=== PATIENT | male | born 1985 | race African-American/Black ===

== ENCOUNTER 2021-04-19 03:25 | Emergency (ER) | payer SELFPAY ==
[~2021-04-19] VITALS: Ht 182.9 cm; Wt 82.0 kg
[2021-04-19] MEDS ORDERED: AMOX-494 MT (03:54)
[2021-04-19] MEDS ORDERED: IBUPROFEN 600MG TABLET PO ONE (04:00)
[2021-04-19] MEDS ORDERED: DEXAMETHASONE 10 MG/ML VIAL IM ONE (04:00)
[2021-04-19 04:01] VITALS: BP 137/79
== END 2021-04-19 04:05 | disposition home or self-care (01) ==
LOC: ER 03:25
DX: J02.9 Acute pharyngitis, unspecified (principal); F12.10 Cannabis abuse, uncomplicated; Z90.49 Acquired absence of other specified parts of digestive tract
CPT/HCPCS: 96372; 99283; J1100

== ENCOUNTER 2022-08-19 16:54 | Emergency (ER) | payer SELFPAY ==
[~2022-08-19] VITALS: Ht 182.9 cm; Wt 88.5 kg
[~2022-08-19 16:54] MED LIST: AMOX-494 MT
[2022-08-19 17:00] VITALS: BP 129/69; PULSE 78; RESP 16; TEMP 98.5; O2SAT 98
[2022-08-19] MEDS ORDERED: AMOX-494 MT (17:26)
[2022-08-19] MEDS ORDERED: IBUP-2029 MT (17:26)
[2022-08-19] MEDS ORDERED: AMOXICILLIN 500 MG CAPSULE PO ONE (17:30)
[2022-08-19] MEDS ORDERED: KETOROLAC 30MG/ML VIAL IM ONE (17:30)
== END 2022-08-19 18:27 | disposition home or self-care (01) ==
LOC: ER 16:54
DX: J02.9 Acute pharyngitis, unspecified (principal); F12.10 Cannabis abuse, uncomplicated
CPT/HCPCS: 96372; 99283; J1885; Z7610

== ENCOUNTER 2022-08-22 20:34 | Emergency (ER) | payer SELFPAY ==
[~2022-08-22] VITALS: Ht 175.3 cm; Wt 86.6 kg
[~2022-08-22 20:34] MED LIST changes: +IBUP-2029 MT
[2022-08-22] MEDS ORDERED: AMOX1TAB16 MT (22:25)
[2022-08-22 22:40] VITALS: BP 130/65
== END 2022-08-22 22:45 | disposition home or self-care (01) ==
LOC: ER 20:34
DX: H66.93 Otitis media, unspecified, bilateral (principal); F12.10 Cannabis abuse, uncomplicated
CPT/HCPCS: 99283

== ENCOUNTER 2023-08-13 07:33 | Emergency (ER) | payer SELFPAY ==
[~2023-08-13] VITALS: Ht 182.9 cm; Wt 84.0 kg
[~2023-08-13 07:33] MED LIST changes: +AMOX1TAB16 MT
[2023-08-13 07:38] VITALS: O2SAT 98
[2023-08-13] MEDS: DEXAMETHASONE 10 MG/ML VIAL PO ONE (09:34)
[2023-08-13] MEDS ORDERED: IBUP-2029 MT (10:24)
[2023-08-13] MEDS ORDERED: AMOX-494 MT (10:24)
[2023-08-13 10:53] VITALS: BP 128/87; PULSE 86; RESP 16; TEMP 98.9
== END 2023-08-13 10:54 | disposition home or self-care (01) ==
LOC: ER 07:33
DX: J03.90 Acute tonsillitis, unspecified (principal); F12.90 Cannabis use, unspecified, uncomplicated
CPT/HCPCS: 99283; 87430; 87070; J1100

== ENCOUNTER 2024-08-06 19:39 | Emergency (ER) | payer SELFPAY ==
[~2024-08-06] VITALS: Ht 182.9 cm; Wt 87.0 kg
[2024-08-06 20:43] VITALS: O2SAT 98
[2024-08-06] MEDS ORDERED: OFLO5DRO4 EACH EAR (21:39)
[2024-08-06] MEDS ORDERED: CARB-274 EACH EAR (21:39)
[2024-08-06 22:11] VITALS: BP 114/74; PULSE 72; RESP 16; TEMP 36.2; O2SAT 98
== END 2024-08-06 22:14 | disposition home or self-care (01) ==
LOC: ER 19:39
DX: H61.22 Impacted cerumen, left ear (principal); H60.92 Unspecified otitis externa, left ear; Z79.899 Other long term (current) drug therapy; F12.90 Cannabis use, unspecified, uncomplicated
CPT/HCPCS: 99283

== ENCOUNTER 2024-08-26 18:46 | Emergency (ER) | payer SELFPAY ==
[~2024-08-26] VITALS: Ht 182.9 cm; Wt 87.0 kg
[~2024-08-26 18:46] MED LIST changes: +CARB-274 EACH EAR; +OFLO5DRO4 EACH EAR
[2024-08-26 19:19] VITALS: O2SAT 100
[2024-08-26] MEDS ORDERED: FLUT16SP15 BOTHNSTRLS (19:53)
[2024-08-26 20:13] VITALS: BP 108/65; PULSE 81; RESP 12; TEMP 36.8; O2SAT 98
== END 2024-08-26 20:16 | disposition home or self-care (01) ==
LOC: ER 18:46
DX: H69.93 Unspecified Eustachian tube disorder, bilateral (principal); F12.90 Cannabis use, unspecified, uncomplicated; Z79.899 Other long term (current) drug therapy
CPT/HCPCS: 99283